=== PATIENT | female | born 1990 | race Caucasian/White ===

== ENCOUNTER 2022-09-05 08:50 | Inpatient (IN) | payer BC, OTHER ==
[~2022-09-05 08:50] MED LIST: Bupivacaine/Epinephrine 0.25% 30 ML VIAL ONE
[2022-09-05 09:44] VITALS: BMI 31.6
[2022-09-05] MEDS ORDERED: Ondansetron PF 4 MG/2 ML Vial IVP PRN ×3 (10:24→18:38)
[2022-09-05] MEDS ORDERED: Diphenoxylate HCl/Atropine Tablet PO PRN ×2 (10:24)
[2022-09-05] MEDS ORDERED: Docusate 100 MG CAP PO PRN (10:24)
[2022-09-05] MEDS ORDERED: Acetaminophen 500 MG TAB PO PRN (10:24)
[2022-09-05] MEDS ORDERED: Butorphanol Tartrate 1 MG/ML VIAL SLOW IVP PRN (10:24)
[2022-09-05] MEDS ORDERED: hydrALAZINE 20 MG/ML VIAL SLOW IVP PRN ×2 (10:24→18:38)
[2022-09-05] MEDS ORDERED: Lidocaine 1% (PF) 30 ML VIAL SC PRN (10:24)
[2022-09-05] MEDS ORDERED: HYDROcodone/Acetaminophen 5/325 mg Tablet PO PRN ×4 (10:24→18:38)
[2022-09-05] MEDS ORDERED: Ibuprofen 800 MG TAB PO PRN (10:24)
[2022-09-05] MEDS ORDERED: Carboprost 250 MCG/ML AMP IM PRN (10:24)
[2022-09-05] MEDS ORDERED: Misoprostol 200 MCG TAB PR PRN (10:24)
[2022-09-05] MEDS ORDERED: Promethazine HCl 25 MG/ML VIAL IM PRN ×2 (10:24→14:44)
[2022-09-05] MEDS ORDERED: NS w/ Oxytocin 30 units 500 ML IV SCH ×3 (10:30→18:45)
[2022-09-05] MEDS: Lactated Ringer's 1,000 ML IV SCH ×2 (11:06→14:26)
[2022-09-05 11:24] LABS: Hemoglobin 12.2 g/dL (12.0-15.5); Mean Corpuscular HGB CONC 35.1 g/dL (32.0-36.0); Mean Corpuscular Hemoglobin 33.6 pg (27.0-33.0); Mean Corpuscular Volume 95.9 fl (81.6-98.3); Mean Platelet Volume 8.8 fl (7.4-10.4); Platelet Count 268 10x3/uL (150-450); RBC Distribution Width 13.1 % (11.5-14.5); Red Blood Cell (RBC) Count 3.63 10x6/uL (3.90-5.03); White Blood Cell (WBC) Count 8.3 10x3/uL (3.5-10.5)
[2022-09-05 11:59] LABS: Syphilis Antibody Nonreactive (Nonreactive); Syphilis Antibody Index 0.04 S/CO (<1.00 Non-Reactive)
[2022-09-05 12:02] LABS: HBSAg Index 0.16 S/CO (0-0.99); HIV (1/2) Antibody/Antigen Non-Reactive (NonReactive); HIV 1/2 INDEX 0.09 S/CO (<1.00); Hep B Surf Ag Non-Reactive S/CO (NonReactive)
[2022-09-05] MEDS ORDERED: Fentanyl 2 mcg/Bup 0.1% Cadd 100 ML ONE (13:06)
[2022-09-05 13:37] LABS: SARS-CoV-2 NAA Rapid Test DETECTED (NotDetected)
[2022-09-05] MEDS ORDERED: ePHEDrine Sulfate 50 MG/10 ML VIAL SLOW IVP PRN (14:44)
[2022-09-05] MEDS ORDERED: diphenhydrAMINE 50 MG/ML VIAL IVP PRN (14:44)
[2022-09-05] MEDS ORDERED: Moisturizing Cream (Eucerin) 113 GM JAR TOP PRN (14:44)
[2022-09-05] MEDS ORDERED: Naloxone HCl 0.4 mg/ml Vial IVP PRN ×2 (14:44)
[2022-09-05] MEDS ORDERED: Lactated Ringer's 500 ML IV PRN (14:44)
[2022-09-05] MEDS ORDERED: Acetaminophen 325 MG TAB PO PRN (14:44)
[2022-09-05] MEDS ORDERED: Communication Order-Pharmacy FS SCH (14:45)
[2022-09-05] MEDS ORDERED: Fentanyl 2 mcg/Bupivacaine 0.1% Cassette 100 ML EPIDURAL SCH (14:45)
[2022-09-05] MEDS ORDERED: Milk Of Magnesia 30 ML UDCUP PO PRN (18:38)
[2022-09-05] MEDS ORDERED: Bisacodyl 10 MG SUPP PR PRN (18:38)
[2022-09-05] MEDS ORDERED: Misoprostol 200 MCG TAB VAG PRN (18:38)
[2022-09-05] MEDS ORDERED: Zolpidem Tartrate 5 MG TAB PO PRN (18:38)
[2022-09-05] MEDS ORDERED: diphenhydrAMINE 25 MG CAP PO PRN (18:38)
[2022-09-05] MEDS ORDERED: Boostrix 0.5 ML (Tdap) VIAL (>/=7 yrs of age) IM ONE (18:38)
[2022-09-05] MEDS ORDERED: Preparation H Ointment 28 GM TUBE PR PRN (18:38)
[2022-09-05] MEDS ORDERED: Benzocaine-Menthol 82.5 ML CAN TOP PRN (18:38)
[2022-09-05] MEDS ORDERED: Lanolin Ointment 7 GM TUBE TOP PRN (18:38)
[2022-09-05] MEDS ORDERED: Witch Hazel-Glycerin 1 EACH JAR TOP PRN (18:40)
[2022-09-05] MEDS: Ibuprofen 800 MG TAB PO SCH (21:14)
[2022-09-05] MEDS: Docusate 100 MG CAP PO SCH (23:18)
[2022-09-06 05:26] LABS: Hemoglobin 11.2 g/dL (12.0-15.5); Mean Corpuscular HGB CONC 34.9 g/dL (32.0-36.0); Mean Corpuscular Hemoglobin 34.1 pg (27.0-33.0); Mean Corpuscular Volume 97.9 fl (81.6-98.3); Mean Platelet Volume 8.9 fl (7.4-10.4); Platelet Count 248 10x3/uL (150-450); RBC Distribution Width 13.1 % (11.5-14.5); Red Blood Cell (RBC) Count 3.28 10x6/uL (3.90-5.03)
[2022-09-06] MEDS: Ibuprofen 800 MG TAB PO SCH ×3 (05:38→21:26)
[2022-09-06] MEDS ORDERED: Ferrous Sulfate 325 MG TAB PO SCH (08:00)
[2022-09-06] MEDS ORDERED: Prenatal Vitamin 1 TAB PO SCH (09:00)
[2022-09-06] MEDS: Docusate 100 MG CAP PO SCH ×2 (13:46→21:26)
[2022-09-06 20:58] VITALS: BP 115/69; TEMP 97.7
== END 2022-09-06 22:40 | disposition home or self-care (01) | DRG 805 ==
LOC: CSHLD/OP 08:50 → CSHLD 13:26 → CSHPP 21:36
PROVIDERS: ADMIT Obstetrics & Gynecology; ATTEND Obstetrics & Gynecology
PROC: 10E0XZZ Delivery of Products of Conception, External Approach (ICD-10-PCS; principal; 2022-09-05)
PROC: 0KQM0ZZ Repair Perineum Muscle, Open Approach (ICD-10-PCS; 2022-09-05)
PROC: 8E0ZXY6 Isolation (ICD-10-PCS; 2022-09-05)
DX: O42.02 Full-term premature rupture of membranes, onset of labor within 24 hours of rupture (principal); U07.1 COVID-19; Z37.0 Single live birth; O98.52 Other viral diseases complicating childbirth; Z3A.38 38 weeks gestation of pregnancy; D64.9 Anemia, unspecified; O99.02 Anemia complicating childbirth; F32.A Depression, unspecified; F41.9 Anxiety disorder, unspecified; O99.344 Other mental disorders complicating childbirth; Z90.89 Acquired absence of other organs; Z79.899 Other long term (current) drug therapy; O70.1 Second degree perineal laceration during delivery
CPT/HCPCS: 51702; 85027; 86780; 86850; 86900; 86901; 87340; 87389; 99285; J2590; J7120; U0002